=== PATIENT | female | born 1970 | race Caucasian/White ===

== ENCOUNTER 2021-05-17 19:13 | Emergency (ER) | payer OTHER ==
[~2021-05-17] VITALS: Ht 152.4 cm; Wt 70.3 kg
[2021-05-17] MEDS ORDERED: KETO10TA2 PO (23:35)
[2021-05-17] MEDS ORDERED: NORFLEX100MG PO (23:35)
== END 2021-05-17 23:54 | disposition home or self-care (01) ==
LOC: ER 19:13
DX: M25.559 Pain in unspecified hip (principal); M54.89 Other dorsalgia; M54.2 Cervicalgia; G80.8 Other cerebral palsy

== ENCOUNTER 2023-02-08 12:53 | Emergency (ER) | payer OTHER ==
[~2023-02-08] VITALS: Ht 152.4 cm; Wt 59.9 kg
[~2023-02-08 12:53] MED LIST: KETO10TA2 PO; NORFLEX100MG PO
== END 2023-02-08 16:51 | disposition home or self-care (01) ==
LOC: ER 12:53
DX: T46.7X5A Adverse effect of peripheral vasodilators, initial encounter (principal); Y92.89 Other specified places as the place of occurrence of the external cause